=== PATIENT | female | born 2005 | race Caucasian/White ===

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

== ENCOUNTER 2023-04-03 19:44 | Emergency (ER) | payer BC, MEDICAID, OTHER ==
[~2023-04-03] VITALS: Ht 160 cm; Wt 59.0 kg
[2023-04-03 20:03] VITALS: BP 134/79; PULSE 81; RESP 16; TEMP 97.4
[2023-04-03] MEDS ORDERED: KETOROLAC TROMETH 60MG/2ML VIAL IM ONE (21:30)
[2023-04-03] MEDS ORDERED: IBUP-1456 PO (21:42)
[2023-04-03 23:35] VITALS: O2SAT 100
== END 2023-04-03 23:35 | disposition home or self-care (01) ==
LOC: ER 19:44
DX: S83.8X1A Sprain of other specified parts of right knee, initial encounter (principal); W22.8XXA Striking against or struck by other objects, initial encounter; Y93.89 Activity, other specified; Y92.89 Other specified places as the place of occurrence of the external cause; Y99.8 Other external cause status
CPT/HCPCS: 29505; 81025; 96372; 99283; J1885